=== PATIENT | female | born 1940 | race Caucasian/White ===

== ENCOUNTER 2022-04-12 10:15 | Inpatient (IN) | payer OTHER ==
[~2022-04-12] VITALS: Ht 165.1 cm; Wt 69.5 kg
[2022-04-12] MEDS ORDERED: VANCOMYCIN 1GM/WATER(PEG/NADA) 200 ML IV ONE (11:15)
[2022-04-12] MEDS ORDERED: PIPERACILLIN/TAZO 3.375 GM/D5W 50 ML IV ONE (11:15)
[2022-04-12 11:40] LABS: BASOPHILS % (AUTO) 0.2 % (0.0-2.0); EOSINOPHILS % (AUTO) 0.5 % (1.0-6.0); HEMATOCRIT 42.3 % (41-53); HEMOGLOBIN 14.1 g/dL (13.5-17.5); LYMPHOCYTES # (AUTO) 0.7 K/uL (1.0-4.8); LYMPHOCYTES % (AUTO) 6.2 % (22.0-44.0); MEAN CORPUSCULAR HEMOGLOBIN 30.1 pg (26.0-34.0); MEAN CORPUSCULAR HGB CONC 33.3 G/dL (31.0-37.0); MEAN CORPUSCULAR VOLUME 90 fL (80-100); MONOCYTES # (AUTO) 0.7 K/uL (0.1-1.0); MONOCYTES % (AUTO) 6.1 % (2.0-9.0); PLATELET COUNT (AUTO) 441 K/uL (150-450); RED BLOOD CELL COUNT(AUTO) 4.68 MIL/uL (4.50-5.90); RED CELL DISTRIBUTION WIDTH 16.9 % (11.5-14.5)
[2022-04-12 11:51] LABS: ANION GAP 9 mmol/L (8-16); CALCIUM, TOTAL 9.1 mg/dL (8.8-10.5); CARBON DIOXIDE 25 mmol/L (22-29); CHLORIDE 102 mmol/L (98-107); CREATININE 0.73 mg/dL (0.60-1.30); GLUCOSE,RANDOM 104 mg/dL (70-110); POTASSIUM 4.3 mmol/L (3.5-5.1); SODIUM SERUM 136 mmol/L (136-145); UREA NITROGEN, BLOOD 13 mg/dL (7-18)
[2022-04-12 11:52] LABS: GLOMERULAR FILTR. RATE CALC > 60 mL/min (>60)
[2022-04-12 11:56] LABS: ALANINE AMINOTRANSFERASE 29 U/L (12-78); ALBUMIN 2.5 g/dL (3.4-5.0); ALKALINE PHOSPHATASE 79 U/L (46-116); ASPARTATE AMINOTRANSFERASE 34 U/L (15-37); BILIRUBIN,TOTAL 0.5 mg/dL (0.1-1.0); TOTAL PROTEIN, SERUM 6.6 g/dL (6.4-8.2)
[2022-04-12 12:10] LABS: COVID AG,FIA SOURCE NASAL SWAB
[2022-04-12] MEDS ORDERED: SODIUM CHLORIDE 0.9% 1,000 ML IV ONE (12:15)
[2022-04-12] MEDS ORDERED: ASPIRIN 81 MG CHEWABLE TABLET PO ONE (12:15)
[2022-04-12 12:27] LABS: INR 1.2 (0.9-1.1); LACTIC ACID 1.3 mmol/L (0.4-2.0); PROTHROMBIN TIME 12.4 SEC (9.4-11.6)
[2022-04-12 12:57] LABS: B-TYPE NATRIURETIC PEPTIDE 415 pg/mL (0-100)
[2022-04-12 13:46] LABS: APPEARANCE,URINE CLEAR (CLEAR); BILIRUBIN,URINE NEGATIVE (NEGATIVE); GLUCOSE, URINE (UA) NEGATIVE (NEGATIVE); KETONES,URINE NEGATIVE (NEGATIVE); LEUKOCYTE ESTERASE ,URINE LARGE (NEGATIVE); NITRATE,URINE NEGATIVE (NEGATIVE); OCCULT BLOOD,URINE NEGATIVE (NEGATIVE); PH,URINE 6.5 (5.0-8.0); PROTEIN,URINE NEGATIVE (NEGATIVE); UROBILINOGEN,URINE <=1.0 mg/dL (<=1.0)
[2022-04-12 14:01] LABS: BACTERIA,URINE Moderate /HPF (None Seen); RBC,URINE None Seen /HPF (0-2); SQUAMOUS EPITHELIAL CELL,UR Few /LPF (None Seen)
[2022-04-12] MEDS ORDERED: AMIODARONE HCL 150 MG in DEXTROSE 5%-WATER 97 ML IV ONE (14:15)
[2022-04-12] MEDS ORDERED: AMIODARONE HCL 360 MG in DEXTROSE 5%-WATER 242.8 ML IV ONE (14:15)
[2022-04-12] MEDS: ALBUTEROL SULFATE 2.5 MG/0.5 ML NEB SOLUTION NEB SCH (15:00)
[2022-04-12] MEDS: APIXABAN 5 MG TABLET PO SCH ×2 (15:00→23:27)
[2022-04-12] MEDS ORDERED: ONDANSETRON HCL 4 MG/2 ML VIAL IVP PRN (15:00)
[2022-04-12] MEDS: METOPROLOL TARTRATE 25 MG TABLET PO SCH ×2 (15:00→23:26)
[2022-04-12] MEDS: CefTRIAXone 1 GM/DEXTROSE 50 ML IV SCH (15:12)
[2022-04-12] MEDS ORDERED: AMIODARONE HCL 540 MG in DEXTROSE 5%-WATER 239.2 ML IV ONE (20:15)
[2022-04-12] MEDS: DOCUSATE SODIUM 100 MG CAPSULE PO SCH (23:26)
[2022-04-12 23:46] VITALS: BP 161/101
[2022-04-13 04:00] VITALS: BP 149/85
[2022-04-13 07:36] VITALS: BP 136/85
[2022-04-13 08:14] LABS: BASOPHILS % (AUTO) 0.4 % (0.0-2.0); HEMATOCRIT 44.3 % (36-46); HEMOGLOBIN 14.9 g/dL (12.0-16.0); LYMPHOCYTES # (AUTO) 0.6 K/uL (1.0-4.8); LYMPHOCYTES % (AUTO) 6.7 % (22.0-44.0); MEAN CORPUSCULAR HEMOGLOBIN 30.1 pg (26.0-34.0); MEAN CORPUSCULAR HGB CONC 33.7 G/dL (31.0-37.0); MEAN CORPUSCULAR VOLUME 90 fL (80-100); MONOCYTES # (AUTO) 0.4 K/uL (0.1-1.0); MONOCYTES % (AUTO) 4.6 % (2.0-9.0); NEUTROPHILS # (AUTO) 7.9 K/uL (1.8-7.7); PLATELET COUNT (AUTO) 440 K/uL (150-450); RED BLOOD CELL COUNT(AUTO) 4.95 MIL/uL (4.00-5.20); RED CELL DISTRIBUTION WIDTH 17.2 % (11.5-14.5)
[2022-04-13 08:18] LABS: NEUTROPHILS % (AUTO) 87.3 % (40.0-70.0)
[2022-04-13 08:37] LABS: ANION GAP 11 mmol/L (8-16); CALCIUM, TOTAL 8.5 mg/dL (8.8-10.5); CARBON DIOXIDE 23 mmol/L (22-29); CHLORIDE 98 mmol/L (98-107); CREATININE 0.61 mg/dL (0.60-1.30); GLOMERULAR FILTR. RATE CALC > 60 mL/min (>60); GLUCOSE,RANDOM 186 mg/dL (70-110); POTASSIUM 4.3 mmol/L (3.5-5.1); SODIUM SERUM 132 mmol/L (136-145); THYROID STIMULATING HORMONE 2.07 uIU/mL (0.36-3.74); UREA NITROGEN, BLOOD 12 mg/dL (7-18)
[2022-04-13] MEDS: APIXABAN 5 MG TABLET PO SCH ×2 (08:59→21:00)
[2022-04-13] MEDS: METOPROLOL TARTRATE 25 MG TABLET PO SCH ×2 (09:00→21:01)
[2022-04-13] MEDS: FAMOTIDINE 20 MG TABLET PO SCH (09:00)
[2022-04-13] MEDS: DOCUSATE SODIUM 100 MG CAPSULE PO SCH ×2 (09:00→21:00)
[2022-04-13] MEDS: ACETAMINOPHEN 325 MG TABLET PO PRN (09:03)
[2022-04-13 11:15] VITALS: BP 128/68
[2022-04-13] MEDS ORDERED: AMIODARONE HCL 750 MG in DEXTROSE 5%-WATER 485 ML IV SCH (14:30)
[2022-04-13] MEDS: CefTRIAXone 1 GM/DEXTROSE 50 ML IV SCH (15:00)
[2022-04-13 15:57] VITALS: BP 136/95
[2022-04-13] MEDS ORDERED: SODIUM CHLORIDE 0.9% 250 ML IV ONE (17:24)
[2022-04-13] MEDS: AMIODARONE HCL 200 MG TABLET PO SCH ×2 (17:47→21:00)
[2022-04-13 20:15] VITALS: BP 116/63
[2022-04-14 00:39] VITALS: BP 118/76
[2022-04-14 04:44] VITALS: BP 138/86
[2022-04-14] MEDS: ALBUTEROL SULFATE 2.5 MG/0.5 ML NEB SOLUTION NEB SCH ×5 (07:00→23:00)
[2022-04-14 07:27] VITALS: BP 166/102
[2022-04-14] MEDS: FAMOTIDINE 20 MG TABLET PO SCH (10:04)
[2022-04-14] MEDS: APIXABAN 5 MG TABLET PO SCH ×2 (10:04→21:02)
[2022-04-14] MEDS: DOCUSATE SODIUM 100 MG CAPSULE PO SCH ×2 (10:04→21:02)
[2022-04-14] MEDS: AMIODARONE HCL 200 MG TABLET PO SCH ×3 (10:05→21:05)
[2022-04-14] MEDS: METOPROLOL TARTRATE 25 MG TABLET PO SCH ×2 (10:06→21:03)
[2022-04-14] MEDS ORDERED: DILTIAZEM HCL 5 MG/ML 5 ML VIAL IVP ONE (10:45)
[2022-04-14] MEDS ORDERED: DILTIAZEM HCL 125 MG in DEXTROSE 5%-WATER 100 ML IV SCH (11:00)
[2022-04-14 11:21] VITALS: BP 141/85
[2022-04-14 15:36] VITALS: BP 144/87
[2022-04-14] MEDS: CefTRIAXone 1 GM/DEXTROSE 50 ML IV SCH (16:53)
[2022-04-14] MEDS ORDERED: 0.9% SODIUM CHLORIDE 5 ML NEB SOLUTION NEB ONE (19:17)
[2022-04-14 20:10] VITALS: BP 131/74
[2022-04-14] MEDS: ACETAMINOPHEN 325 MG TABLET PO PRN (23:44)
[2022-04-15] VITALS (7 sets, daily range): BP systolic 118–150; BP diastolic 72–97
[2022-04-15] MEDS: ALBUTEROL SULFATE 2.5 MG/0.5 ML NEB SOLUTION NEB SCH ×6 (03:00→23:31)
[2022-04-15 05:46] LABS: BASOPHILS % (AUTO) 0.6 % (0.0-2.0); EOSINOPHILS % (AUTO) 1.1 % (1.0-6.0); HEMOGLOBIN 12.5 g/dL (12.0-16.0); LYMPHOCYTES # (AUTO) 0.8 K/uL (1.0-4.8); LYMPHOCYTES % (AUTO) 9.4 % (22.0-44.0); MEAN CORPUSCULAR HEMOGLOBIN 30.3 pg (26.0-34.0); MEAN CORPUSCULAR HGB CONC 33.8 G/dL (31.0-37.0); MEAN CORPUSCULAR VOLUME 90 fL (80-100); MONOCYTES # (AUTO) 0.8 K/uL (0.1-1.0); MONOCYTES % (AUTO) 9.6 % (2.0-9.0); NEUTROPHILS # (AUTO) 6.8 K/uL (1.8-7.7); NEUTROPHILS % (AUTO) 79.3 % (40.0-70.0); PLATELET COUNT (AUTO) 399 K/uL (150-450); RED BLOOD CELL COUNT(AUTO) 4.13 MIL/uL (4.00-5.20); RED CELL DISTRIBUTION WIDTH 17.6 % (11.5-14.5)
[2022-04-15 05:54] LABS: ANION GAP 5 mmol/L (8-16); CALCIUM, TOTAL 8.9 mg/dL (8.8-10.5); CARBON DIOXIDE 28 mmol/L (22-29); CHLORIDE 103 mmol/L (98-107); CREATININE 0.76 mg/dL (0.60-1.30); GLUCOSE,RANDOM 104 mg/dL (70-110); POTASSIUM 4.1 mmol/L (3.5-5.1); SODIUM SERUM 136 mmol/L (136-145); UREA NITROGEN, BLOOD 20 mg/dL (7-18)
[2022-04-15 05:56] LABS: GLOMERULAR FILTR. RATE CALC > 60 mL/min (>60)
[2022-04-15] MEDS: APIXABAN 5 MG TABLET PO SCH ×2 (09:52→20:43)
[2022-04-15] MEDS: AMIODARONE HCL 200 MG TABLET PO SCH ×2 (09:52→20:43)
[2022-04-15] MEDS: METOPROLOL TARTRATE 25 MG TABLET PO SCH ×2 (09:52→20:51)
[2022-04-15] MEDS: DOCUSATE SODIUM 100 MG CAPSULE PO SCH ×2 (09:52→20:43)
[2022-04-15] MEDS: FAMOTIDINE 20 MG TABLET PO SCH (09:52)
[2022-04-15] MEDS: DILTIAZEM HCL 30 MG TABLET PO SCH (16:31)
[2022-04-16 00:17] VITALS: BP 124/92
[2022-04-16] MEDS: DILTIAZEM HCL 30 MG TABLET PO SCH ×2 (00:34→05:23)
[2022-04-16] MEDS: ALBUTEROL SULFATE 2.5 MG/0.5 ML NEB SOLUTION NEB SCH ×6 (02:28→23:06)
[2022-04-16 04:26] VITALS: BP 139/76
[2022-04-16 07:20] VITALS: BP 132/78
[2022-04-16] MEDS: DOCUSATE SODIUM 100 MG CAPSULE PO SCH ×2 (08:55→20:21)
[2022-04-16] MEDS: METOPROLOL TARTRATE 25 MG TABLET PO SCH ×2 (08:56→21:00)
[2022-04-16] MEDS: FAMOTIDINE 20 MG TABLET PO SCH (08:56)
[2022-04-16] MEDS: AMIODARONE HCL 200 MG TABLET PO SCH ×2 (08:56→20:21)
[2022-04-16] MEDS: APIXABAN 5 MG TABLET PO SCH ×2 (08:56→20:21)
[2022-04-16 11:52] VITALS: BP 157/87
[2022-04-16] MEDS: DILTIAZEM HCL 60 MG TABLET PO SCH ×2 (12:54→17:10)
[2022-04-16] MEDS: ACETAMINOPHEN 325 MG TABLET PO PRN ×2 (13:01→20:25)
[2022-04-16 16:05] VITALS: BP 138/72
[2022-04-16 19:15] VITALS: BP 109/46
[2022-04-17] VITALS (7 sets, daily range): BP systolic 112–132; BP diastolic 61–75
[2022-04-17] MEDS: DILTIAZEM HCL 60 MG TABLET PO SCH ×5 (00:08→23:47)
[2022-04-17] MEDS: ALBUTEROL SULFATE 2.5 MG/0.5 ML NEB SOLUTION NEB SCH ×5 (07:47→23:00)
[2022-04-17] MEDS: APIXABAN 5 MG TABLET PO SCH ×2 (08:15→20:39)
[2022-04-17] MEDS: DOCUSATE SODIUM 100 MG CAPSULE PO SCH ×2 (08:15→20:39)
[2022-04-17] MEDS: METOPROLOL TARTRATE 25 MG TABLET PO SCH ×3 (08:15→20:46)
[2022-04-17] MEDS: AMIODARONE HCL 200 MG TABLET PO SCH ×2 (08:15→20:39)
[2022-04-17] MEDS: FAMOTIDINE 20 MG TABLET PO SCH (08:15)
[2022-04-17] MEDS ORDERED: AUD NEB (14:29)
[2022-04-17] MEDS ORDERED: AMIO200T68 PO (14:30)
[2022-04-17] MEDS ORDERED: APIX5TAB PO (14:30)
[2022-04-17] MEDS ORDERED: DOCU-385 PO (14:31)
[2022-04-17] MEDS ORDERED: DILT60TA3 PO (14:31)
[2022-04-17] MEDS ORDERED: FAMO20 PO (14:32)
[2022-04-17] MEDS ORDERED: METO25 PO (15:22)
[2022-04-17] MEDS ORDERED: ACET-2247 PO (15:23)
[2022-04-17] MEDS ORDERED: 0.9% SODIUM CHLORIDE 5 ML NEB SOLUTION NEB ONE (22:46)
[2022-04-18] MEDS: ALBUTEROL SULFATE 2.5 MG/0.5 ML NEB SOLUTION NEB SCH ×6 (03:00→22:39)
[2022-04-18 04:40] VITALS: BP 133/94
[2022-04-18] MEDS: DILTIAZEM HCL 60 MG TABLET PO SCH ×3 (05:15→18:46)
[2022-04-18 07:11] VITALS: BP 129/91
[2022-04-18] MEDS ORDERED: 0.9% SODIUM CHLORIDE 5 ML NEB SOLUTION NEB ONE ×5 (07:28→22:28)
[2022-04-18] MEDS: AMIODARONE HCL 200 MG TABLET PO SCH (08:41)
[2022-04-18] MEDS: DOCUSATE SODIUM 100 MG CAPSULE PO SCH ×2 (08:41→21:16)
[2022-04-18] MEDS: FAMOTIDINE 20 MG TABLET PO SCH (08:41)
[2022-04-18] MEDS: METOPROLOL TARTRATE 25 MG TABLET PO SCH ×2 (08:41→21:16)
[2022-04-18] MEDS: APIXABAN 5 MG TABLET PO SCH ×2 (08:42→21:16)
[2022-04-18 11:18] VITALS: BP 115/70
[2022-04-18 14:59] VITALS: BP 126/85
[2022-04-18 20:32] VITALS: BP 116/75
[2022-04-19 00:23] VITALS: BP 121/72
[2022-04-19] MEDS: DILTIAZEM HCL 60 MG TABLET PO SCH ×4 (00:59→17:22)
[2022-04-19] MEDS: ALBUTEROL SULFATE 2.5 MG/0.5 ML NEB SOLUTION NEB SCH ×6 (03:00→23:00)
[2022-04-19 04:52] VITALS: BP 118/71
[2022-04-19 07:19] VITALS: BP 125/85
[2022-04-19] MEDS: METOPROLOL TARTRATE 25 MG TABLET PO SCH ×2 (08:15→21:27)
[2022-04-19] MEDS: FAMOTIDINE 20 MG TABLET PO SCH (08:16)
[2022-04-19] MEDS: DOCUSATE SODIUM 100 MG CAPSULE PO SCH ×2 (08:16→21:00)
[2022-04-19] MEDS: AMIODARONE HCL 200 MG TABLET PO SCH (08:16)
[2022-04-19] MEDS: APIXABAN 5 MG TABLET PO SCH ×2 (08:16→21:27)
[2022-04-19 11:09] VITALS: BP 120/83
[2022-04-19 15:37] VITALS: BP 133/83
[2022-04-19] MEDS ORDERED: 0.9% SODIUM CHLORIDE 5 ML NEB SOLUTION NEB ONE (16:00)
[2022-04-19 19:30] VITALS: BP 126/78
[2022-04-20 00:05] VITALS: BP 147/97
[2022-04-20] MEDS: DILTIAZEM HCL 60 MG TABLET PO SCH ×5 (00:33→23:40)
[2022-04-20] MEDS: ALBUTEROL SULFATE 2.5 MG/0.5 ML NEB SOLUTION NEB SCH ×6 (03:00→22:57)
[2022-04-20 04:58] VITALS: BP 138/92
[2022-04-20 07:21] VITALS: BP 122/88
[2022-04-20] MEDS: APIXABAN 5 MG TABLET PO SCH ×2 (07:58→20:33)
[2022-04-20] MEDS: AMIODARONE HCL 200 MG TABLET PO SCH (07:58)
[2022-04-20] MEDS: DOCUSATE SODIUM 100 MG CAPSULE PO SCH ×2 (07:58→20:33)
[2022-04-20] MEDS: FAMOTIDINE 20 MG TABLET PO SCH (07:58)
[2022-04-20] MEDS: METOPROLOL TARTRATE 25 MG TABLET PO SCH ×2 (07:58→20:33)
[2022-04-20] MEDS: ACETAMINOPHEN 325 MG TABLET PO PRN (10:52)
[2022-04-20 11:10] VITALS: BP 124/71
[2022-04-20 15:23] VITALS: BP 137/92
[2022-04-20] MEDS ORDERED: 0.9% SODIUM CHLORIDE 5 ML NEB SOLUTION NEB ONE ×2 (19:25→22:51)
[2022-04-20 21:18] VITALS: BP 127/73
[2022-04-21] VITALS (10 sets, daily range): BP systolic 122–155; BP diastolic 76–96
[2022-04-21] MEDS: ALBUTEROL SULFATE 2.5 MG/0.5 ML NEB SOLUTION NEB SCH ×6 (03:00→23:00)
[2022-04-21] MEDS: DILTIAZEM HCL 60 MG TABLET PO SCH ×2 (05:33→13:15)
[2022-04-21] MEDS: FAMOTIDINE 20 MG TABLET PO SCH (08:57)
[2022-04-21] MEDS: METOPROLOL TARTRATE 25 MG TABLET PO SCH ×2 (08:57→21:21)
[2022-04-21] MEDS: AMIODARONE HCL 200 MG TABLET PO SCH (08:57)
[2022-04-21] MEDS: DOCUSATE SODIUM 100 MG CAPSULE PO SCH ×2 (08:57→21:21)
[2022-04-21] MEDS: APIXABAN 5 MG TABLET PO SCH ×2 (08:59→21:21)
[2022-04-21] MEDS ORDERED: 0.9% SODIUM CHLORIDE 5 ML NEB SOLUTION NEB ONE (20:17)
[2022-04-21] MEDS: ACETAMINOPHEN 325 MG TABLET PO PRN (21:21)
[2022-04-22 00:13] VITALS: BP 157/104
[2022-04-22] MEDS: DILTIAZEM HCL 60 MG TABLET PO SCH ×3 (00:19→13:20)
[2022-04-22] MEDS: ALBUTEROL SULFATE 2.5 MG/0.5 ML NEB SOLUTION NEB SCH ×4 (03:45→14:43)
[2022-04-22 04:46] VITALS: BP 144/95
[2022-04-22 08:07] VITALS: BP 134/90
[2022-04-22] MEDS: FAMOTIDINE 20 MG TABLET PO SCH (08:36)
[2022-04-22] MEDS: APIXABAN 5 MG TABLET PO SCH (08:36)
[2022-04-22] MEDS: METOPROLOL TARTRATE 25 MG TABLET PO SCH (08:36)
[2022-04-22] MEDS: DOCUSATE SODIUM 100 MG CAPSULE PO SCH (08:36)
[2022-04-22] MEDS: AMIODARONE HCL 200 MG TABLET PO SCH (08:36)
[2022-04-22 10:51] VITALS: BP 115/84
[2022-04-22 15:14] VITALS: BP 142/100
[2022-04-22 16:03] VITALS: BP 142/65
== END 2022-04-22 16:40 | DRG 308 ==
LOC: EDSEX 10:15 → EMS 10:15 → 5S 21:01
PROVIDERS: ADMIT Internal Medicine; ATTEND Internal Medicine
DX: I48.19 Other persistent atrial fibrillation (principal); I50.31 Acute diastolic (congestive) heart failure; N39.0 Urinary tract infection, site not specified; I82.503 Chronic embolism and thrombosis of unspecified deep veins of lower extremity, bilateral; R64 Cachexia; I48.92 Unspecified atrial flutter; Z20.822 Contact with and (suspected) exposure to COVID-19; E04.2 Nontoxic multinodular goiter; F03.90 Unspecified dementia, unspecified severity, without behavioral disturbance, psychotic disturbance, mood disturbance, and anxiety; I08.0 Rheumatic disorders of both mitral and aortic valves; B96.5 Pseudomonas (aeruginosa) (mallei) (pseudomallei) as the cause of diseases classified elsewhere; R62.7 Adult failure to thrive; Z75.1 Person awaiting admission to adequate facility elsewhere; Z90.13 Acquired absence of bilateral breasts and nipples; Z85.3 Personal history of malignant neoplasm of breast
CPT/HCPCS: 70450; 71045; 71250; 80048; 80053; 81001; 83605; 83880; 84443; 84484; 85025; 85610; 85730; 87040; 87081; 87086; 93005; 93306; 93970; 94640; 97110; 97162; 97530; 99291; J0282; J0696; J3490; J7050; J7060; Q9967; 36415-L1; 36415-TC; J7613